=== PATIENT | male | born 1980 | race African-American/Black ===

== ENCOUNTER 2019-09-25 10:54 | Outpatient (CLI) | payer OTHER ==
--- NOTE | 2019-09-26 12:32 | NM ---
Radioiodine thyroid uptake and scan HISTORY: Thyrotoxicosis. FINDINGS: 211 uCi I-123 p.o. Planar anterior, SAUCEDA, JOSE MARTIN images. Homogeneous uptake. No focal cold or hot defects. 4 hour uptake 67% 24 hour uptake 75% IMPRESSION : Hyperthyroidism. Graves' disease. No focal abnormalities otherwise demonstrated.
== END 2019-09-25 10:55 | disposition home or self-care (01) ==
LOC: NM 10:54
PROVIDERS: ATTEND Family Medicine
DX: E05.00 Thyrotoxicosis with diffuse goiter without thyrotoxic crisis or storm (principal)
CPT/HCPCS: 78014; A9516